=== PATIENT | male | born 1965 | race Caucasian/White ===

== ENCOUNTER 2018-11-11 12:42 | Emergency (ER) | payer OTHER ==
[~2018-11-11] VITALS: Ht 175.3 cm; Wt 68.0 kg
[2018-11-11] MEDS ORDERED: PAXIL40 MG PO (12:56)
[2018-11-11] MEDS ORDERED: PAXIL 20 MG TAB20 M1 PO (13:03)
[2018-11-11 13:17] VITALS: BP 135/75
== END 2018-11-11 13:18 | disposition home or self-care (01) ==
LOC: M.ERS 12:42
DX: F41.9 Anxiety disorder, unspecified (principal); Z76.0 Encounter for issue of repeat prescription